=== PATIENT | male | born 1940 | race Caucasian/White ===

== ENCOUNTER → 2016-05-10 | Outpatient (REF) | payer MEDICARE, OTHER ==
[~2016-05-10] MED LIST: ACET325T38 PO; ATN25T; ATN50T PO; DOXA8TAB2 PO; FURO-125 PO; FURO40TA4 PO; HCT25T PO; KCL20TCR PO; MESA800T PO; NF-MINO10T PO; NF-VAL40T; SMV20T PO; VALS160T23 PO
[2016-05-10 11:43] LABS: ALBUMIN 4.2 g/dL (3.4-5.0); ANION GAP 17.6 MEQ/L (3-15); CALCULATED IONIZED CALCIUM 4.1 mg/dL (3.8-4.6); TOTAL PROTEIN 7.3 g/dL (6.4-8.5)
== END ==
LOC: LAB 10:21
PROVIDERS: ATTEND Family Medicine
DX: I10 Essential (primary) hypertension (principal); K50.90 Crohn's disease, unspecified, without complications
CPT/HCPCS: 80053

== ENCOUNTER → 2016-06-17 | Outpatient (CLI) | payer MEDICARE, OTHER | LOC: LAB 09:16 | PROVIDERS: ATTEND Internal Medicine Gastroenterology | DX: K50.10 Crohn's disease of large intestine without complications (principal) | CPT/HCPCS: 83993 ==

== ENCOUNTER 2016-07-21 12:30 | Emergency (ER) | payer MEDICARE, OTHER ==
[~2016-07-21] VITALS: Ht 188 cm; Wt 118.4 kg
[2016-07-21 13:53] LABS: BASOPHILS % (AUTO) 0 % (0-2); EOSINOPHILS % (AUTO) 0 % (0-4); LYMPHOCYTES # (AUTO) 0.9 X10^3; MEAN CORPUSCULAR HEMOGLOBIN 29.4 PG (26.0-34.0); MEAN CORPUSCULAR HGB CONC 33.9 g/dL (31.0-37.0); MEAN CORPUSCULAR VOLUME 87 FL (80-100); MEAN PLATELET VOLUME 9.6 FL (6.0-9.5); MONOCYTES # (AUTO) 0.7 X10^3; MONOCYTES % (AUTO) 7 % (3-11); NEUTROPHILS # (AUTO) 8.5 X10^3; NEUTROPHILS % (AUTO) 83 % (51-67); PLATELET COUNT 141 10^3uL (150-450); WHITE BLOOD COUNT 10.15 10^3uL (4.0-11.0)
[2016-07-21 15:15] LABS: ALBUMIN 3.9 g/dL (3.4-5.0); ANION GAP 15.9 MEQ/L (3-15); CALCULATED IONIZED CALCIUM 4.1 mg/dL (3.8-4.6)
--- NOTE | 2016-07-21 15:49 | NUR ---
Lab reports Troponin level is 0.09 which is "critical" result - reported to .
[2016-07-21] MEDS ORDERED: ASPIRIN 81 MG CHEW (CHILDREN'S ASA) PO ONE (16:00)
[2016-07-21] MEDS ORDERED: NITROGLYCERIN 2% OINTMENT (NITRO-BID) 1 GM UNIT DOSE PACKET TOP ONE (16:00)
[2016-07-21] MEDS ORDERED: FUROSEMIDE 20 MG/2 ML (LASIX) VIAL IV ONE (16:00)
[2016-07-21] MEDS ORDERED: SODIUM CHLORIDE FLUSH 10 ML SYR IV PRN (16:15)
[2016-07-21] MEDS: SODIUM CHLORIDE FLUSH 3 ML SYR IV PRN ×3 (16:19→16:33)
--- NOTE | 2016-07-21 16:37 | NUR ---
Has not had any chest discomfort or other discomfort since admission. Little or no SOA while at rest on ER cart. Denies nausea. Skin remains cool and dry.
[2016-07-21] MEDS ORDERED: ENOXAPARIN 100 MG/1 ML (LOVENOX) SYR SC ONE (17:00)
--- NOTE | 2016-07-21 17:07 | NUR ---
HAS BEEN UP TO TOILET TO URINATE. DENIES FEELING LIGHT-HEADED OR DIZZY. TOLERATED WELL.
--- NOTE | 2016-07-21 17:28 | NUR ---
[facility] has accepted patient for transfer at 1717 hrs. Contacted CCU to give pt report to nurse who was unable to take report at this time and asked that I call back in 15 minutes.
--- NOTE | 2016-07-21 17:36 | NUR ---
Pt continues to deny any discomfort. Sits on ER cart with HOB elevated to approx 80 degrees. Denies SOA at present. Denies nausea. Skin is cool and dry. Remains alert and oriented.
--- NOTE | 2016-07-21 17:59 | NUR ---
EMS has loaded patient. Have contacted [facility] CCU receiving nurse who accepts pt report.
[2016-07-21 22:12] VITALS: BP 139/91
== END 2016-07-21 18:05 | disposition short-term general hospital (02) ==
LOC: ED 12:31
DX: I20.8 Other forms of angina pectoris (principal); I11.0 Hypertensive heart disease with heart failure; I50.9 Heart failure, unspecified
CPT/HCPCS: 36415; 71020; 80053; 82550; 82553; 83880; 84484; 85025; 86140; 87486; 87581; 87633; 87798; 93005; 99285; A9270; J1650; J1940; 93010; 96372; 96374

== ENCOUNTER → 2016-07-21 | Outpatient (CLI) | payer MEDICARE, OTHER | LOC: EMS 17:50 | PROVIDERS: ATTEND Internal Medicine | DX: I20.8 Other forms of angina pectoris (principal) ==

== ENCOUNTER 2016-07-30 19:48 | Emergency (ER) | payer MEDICARE, OTHER ==
[~2016-07-30] VITALS: Ht 188 cm; Wt 117.3 kg
--- OUTSIDE RECORDS SUMMARY | 2016-07-30 19:52 | XMS REPORT | Continuity of Care Document ---
Author Author [facility] Address Unknown Phone Unavailable Allergies Active Description Code Type Severity Reaction Onset Reported/Identified Relationship to Patient Clinical Status Yes No Known Allergies [id number] Drug Allergy Unknown N/A 07/21/2016 Yes No Known Allergies No Known Allergies Drug Allergy Unknown N/A 07/21/2016 Medications Problems Date Dx Coded Attending Type Code Diagnosis Diagnosed By 05/13/2012 Ot 366.9 05/13/2012 Ot 368.8 07/06/2012 Ot 372.00 ACUTE CONJUNCTIVITIS NOS 07/06/2012 Ot 379.8 EYE DISORDERS NEC 11/06/2014 KRISHNA BOSTON, KEY M Ot 272.0 11/06/2014 KRISHNA BOSTON, KEY M Ot 401.9 11/06/2014 KRISHNA BOSTON, KEY M Ot 272.0 11/06/2014 KRISHNA BOSTON, KEY M Ot 401.9 11/26/2014 KRISHNA BOSTON, KEY M Ot 272.0 11/26/2014 KRISHNA BOSTON, KEY M Ot 401.9 12/11/2014 KRISHNA BOSTON, KEY M Ot 272.0 12/11/2014 KRISHNA BOSTON, KEY M Ot 401.9 12/11/2014 KRISHNA BOSTON, KEY M Ot 555.9 12/14/2014 KRISHNA BOSTON, KEY M Ot 575.0 12/18/2014 KRISHNA BOSTON, KEY M Ot 575.0 12/29/2014 KRISHNA BOSTON, KEY M Ot 272.0 12/29/2014 KRISHNA BOSTON, KEY M Ot 401.9 12/29/2014 KRISHNA BOSTON, KEY M Ot 555.9 01/07/2015 KRISHNA BOSTON, KEY M Ot 575.0 01/18/2015 KRISHNA BOSTON, KEY M Ot 272.0 01/18/2015 KRISHNA BOSTON, KEY M Ot 401.9 01/18/2015 KRISHNA BOSTON, KEY M Ot 555.9 01/22/2015 EZEKIEL BOSTON, EVA Pena Ot 401.9 01/22/2015 EZEKIEL BOSTON, EVA Pena Ot 555.9 01/22/2015 KRISHNA BOSTON, KEY Dye Ot 272.0 01/22/2015 KRISHNA BOSTON, KEY Dye Ot 401.9 01/22/2015 KRISHNA BOSTON, KEY Dye Ot 272.0 01/22/2015 KRISHNA BOSTON, KEY Hardik Ot 401.9 01/22/2015 KRISHNA BOSTON, KEY Dye Ot 555.9 01/22/2015 KRISHNA BOSTON, KEY Hardik Ot 789.09 01/22/2015 KRISHNA BOSTON, KEY Dye Ot 575.0 01/28/2015 TONA ERWIN MD Ot E66.01 MORBID (SEVERE) OBESITY DUE TO EXCESS CA 01/28/2015 TONA ERWIN MD Ot E78.5 HYPERLIPIDEMIA, UNSPECIFIED 01/28/2015 TONA ERWIN MD Ot E87.6 HYPOKALEMIA 01/28/2015 TONA ERWIN MD Ot I10 ESSENTIAL (PRIMARY) HYPERTENSION 01/28/2015 TONA ERWIN MD Ot I95.89 OTHER HYPOTENSION 01/28/2015 TONA ERWIN MD Ot K50.90 CROHN'S DISEASE, UNSPECIFIED, WITHOUT CO 01/28/2015 TONA ERWIN MD Ot K80.20 CALCULUS OF GALLBLADDER W/O CHOLECYSTITI 01/28/2015 TONA ERWIN MD Ot T41.1X5A ADVERSE EFFECT OF INTRAVENOUS ANESTHETIC 01/28/2015 TONA ERWIN MD Ot T88.59XA OTHER COMPLICATIONS OF ANESTHESIA, INITI 01/28/2015 TONA ERWIN MD Ot Y84.8 OT MEDICAL PROCEDURES CAUSE ABN REACT /C 01/28/2015 TONA ERWIN MD Ot Y92.[address] 01/28/2015 TONA ERWIN MD Ot Z53.9 PROCEDURE AND TREATMENT NOT CARRIED OUT, 01/28/2015 TONA ERWIN MD Ot Z68.34 BODY MASS INDEX (BMI) 34.0-34.9, ADULT 01/29/2015 KRISHNA BOSTON, KEY Dye Ot 575.0 01/30/2015 WESLEY GALLARDO MD Ot E78.5 HYPERLIPIDEMIA, UNSPECIFIED 01/30/2015 WESLEY GALLARDO MD Ot I10 ESSENTIAL (PRIMARY) HYPERTENSION 01/30/2015 WESLEY GALLARDO MD Ot K50.90 CROHN'S DISEASE, UNSPECIFIED, WITHOUT CO 01/30/2015 PAULINA BOSTON, WESLEY P Ot K92.1 MELENA 02/02/2015 PAULINA BOSTON, WESLEY P Ot R19.7 02/10/2015 PAULINA BOSTON, WESLEY P Ot K92.1 02/10/2015 PAULINA BOSTON, WESLEY P Ot R10.9 02/10/2015 PAULINA BOSTON, WESLEY P Ot R19.7 02/19/2015 DEE DEE BOSTON, JEF Langley Ot 574.20 02/19/2015 JEF FUNEZ MD Ot 593.2 02/26/2015 KRISHNA BOSTON, KEY Dye Ot 272.0 02/26/2015 KRISHNA BOSTON, KEY Dye Ot 401.9 02/26/2015 KRISHNA BOSTON, KEY Dye Ot 555.9 03/09/2015 Ot I10 03/15/2015 KRISHNA BOSTON, KEY Dye Ot 272.0 03/15/2015 KRISHNA BOSTON, EKY Dye Ot 401.9 03/15/2015 KRISHNA BOSTON, KEY Dye Ot 555.9 05/31/2015 JEF FUNEZ MD Ot E66.01 MORBID (SEVERE) OBESITY DUE TO EXCESS CA 05/31/2015 JEF FUNEZ MD Ot E78.0 PURE HYPERCHOLESTEROLEMIA 05/31/2015 JEF FUNEZ MD Ot I10 ESSENTIAL (PRIMARY) HYPERTENSION 05/31/2015 JEF FUNEZ MD Ot K50.90 CROHN'S DISEASE, UNSPECIFIED, WITHOUT CO 05/31/2015 JEF FUNEZ MD Ot 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 05/31/2015 JEF FUNEZ MD Ot Z68.36 BODY MASS INDEX (BMI) 36.0-36.9, ADULT 08/06/2015 KRISHNA BOSTON, KEY Dye Ot 272.0 08/06/2015 KRISHNA BOSTON, KEY Dye Ot 401.9 08/06/2015 KRISHNA BOSTON, KEY Dye Ot 555.9 08/31/2015 ORA KLEIN Ot K50.90 CROHN'S DISEASE, UNSPECIFIED, WITHOUT CO 09/16/2015 ORA KLEIN Ot K50.90 CROHN'S DISEASE, UNSPECIFIED, WITHOUT CO 05/12/2016 KEY KELLER MD Ot 272.0 PURE HYPERCHOLESTEROLEM 05/12/2016 KEY KELLER MD Ot 401.9 HYPERTENSION NOS 05/12/2016 KRISHNA BOSTON, KEY Dye Ot 272.0 PURE HYPERCHOLESTEROLEM 05/12/2016 KEY KELLER MD Ot 401.9 HYPERTENSION NOS 05/12/2016 KRISHNA BOSTON, KEY Dye Ot 555.9 REGIONAL ENTERITIS NOS 05/12/2016 KRISHNA BOSTON, KEY Dye Ot 789.09 ABDOMINAL PAIN, OTHER SPECIFIED SITE 05/12/2016 KEY KELLER MD Ot 575.0 ACUTE CHOLECYSTITIS 05/12/2016 DEE DEE BOSTON, JEF Langley Ot 574.20 CHOLELITHIASIS NOS 05/12/2016 DEE DEE BOSTON, JEF Langley Ot 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, ACQUIRED 05/12/2016 PAULINA BOSTON, WESLEY Cunningham Ot K92.1 MELENA 05/12/2016 WESLEY GALLARDO MD Ot R10.9 UNSPECIFIED ABDOMINAL PAIN 05/12/2016 WESLEY GALLARDO MD Ot R19.7 DIARRHEA, UNSPECIFIED 05/12/2016 Ot I10 ESSENTIAL (PRIMARY) HYPERTENSION 05/12/2016 ORA KLEIN Ot K50.90 CROHN'S DISEASE, UNSPECIFIED, WITHOUT CO 05/13/2016 KEY KELLER MD Ot I10 ESSENTIAL (PRIMARY) HYPERTENSION 05/13/2016 KEY KELLER MD Ot K50.90 CROHN'S DISEASE, UNSPECIFIED, WITHOUT CO 05/18/2016 EKY KELLER MD Ot I10 ESSENTIAL (PRIMARY) HYPERTENSION 05/18/2016 KEY KELLER MD Ot K50.90 CROHN'S DISEASE, UNSPECIFIED, WITHOUT CO 06/27/2016 RM MARTE MD Ot 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 07/18/2016 RM MARTE MD Ot 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 07/25/2016 KIRBY GREY MD Ot I11.0 HYPERTENSIVE HEART DISEASE WITH HEART FA 07/25/2016 KIRBY GREY MD 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 07/25/2016 KIRBY GREY MD Ot I50.9 HEART FAILURE, UNSPECIFIED 07/25/2016 KIRBY GREY MD Ot R06.02 SHORTNESS OF BREATH 07/25/2016 Keenan Diaz 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 Procedures Code Description Performed By Performed On [id number] RESECTION OF GALLBLADDER, PERCUTANEOUS E 01/27/2015 Results Test Result Range Comprehensive metabolic panel - 05/10/16 10:20 Sodium measurement 96 70-110 Carbon dioxide measurement 25 22-29 Serum or plasma anion gap 17.6 3-15 BLOOD UREA NITROGEN 17 7-18 CREATININE SERUM 1.27 0.8-1.5 Brucella species antibody panel (IgG, IgM) 13 10-20 Estimated glomerular filtration rate (GFR) 66.7 Estimated glomerular filtration rate (GFR) non- 55.1 OSMOLALITY,CALCULATED 280 280-300 CALCIUM 9.5 8.8-10.8 Calculated ionized calcium measurement 4.1 3.8-4.6 BILIRUBIN,TOTAL 0.9 0.1-1.0 Serum or plasma alkaline phosphatase measurement 71 38-126 ASPARTATE AMINO TRANSFERASE 22 15-37 ALANINE AMINOTRANSFERASE 31 30-65 Serum or plasma total protein measurement 7.3 6.4-8.5 Serum or plasma albumin measurement 4.2 3.4-5.0 Serum or plasma albumin/globulin mass ratio 1.354 1.1-1.8 Calprotectin - 06/17/16 02:30 Calprotectin 41.5 RESPIRATORY PANEL by PCR - 07/21/16 13:34 Adenovirus DNA Negative Negative Human coronavirus 229E RNA Negative Negative Coronovirus HKU1 Negative Negative Human coronavirus NL63 RNA Negative Negative Human coronavirus OC43 RNA Negative Negative Human metapneumovirus RNA Negative Negative Rhinovirus+Enterovirus RNA Negative Negative Influenza virus A subtype Negative Negative Influenza virus B RNA Negative Negative Parainfluenza virus 1 RNA Negative Negative Parainfluenza virus 2 RNA Negative Negative Parainfluenza virus 3 RNA Negative Negative Parainfluenza virus 4 RNA Negative Negative Respiratory syncytial virus RNA Negative Negative Bordetella pertussis DNA Negative Negative Chlamydophila pneumoniae DNA Negative Negative Mycoplasma pneumoniae DNA Negative Negative Complete blood count (CBC) with automated white blood cell (WBC) differential - 07/21/16 13:37 Blood automated leukocyte count 10.15 4.0-11.0 Erythrocytes 5.13 4.50-5.50 12.0-16.0;g/dL 15.1 13.5-17.0 Hematocrit 44.50 39.00-50.00 Automated erythrocyte mean corpuscular volume 87 80-100 Mean corpuscular hemoglobin (MCH) determination 29.4 26.0-34.0 Automated erythrocyte mean corpuscular hemoglobin concentration measurement ( mass/volume) 33.9 31.0-37.0 Erythrocyte distribution width 12.8 11.8 -15.6 Automated blood platelet count 141 150- 450 Automated blood platelet mean volume measurement 9.6 6.0-9.5 Automated neutrophil percentage 83 51- 67 Lymphocytes/100 leukocytes 9 20-46 Automated monocyte percentage 7 3-11 Eosinophil count auto 0 0-4 Automated basophil percentage 0 0-2 Automated blood neutrophil count 8.5 Blood lymphocytes count (number/volume) 0.9 Automated blood monocyte count 0.7 Blood absolute eosinophil count 0.0 Basophils 0.0 C REACTIVE PROTEIN* - 07/21/16 13:37 C REACTIVE PROTEIN* 1.40 0.0-0.9 Comprehensive metabolic panel - 07/21/16 13:37 Sodium measurement 100 70-110 CARBON DIOXIDE 24 22-29 Serum or plasma anion gap 15.9 3-15 BLOOD UREA NITROGEN 16 7-18 CREATININE SERUM 1.30 0.8-1.5 Brucella species antibody panel (IgG, IgM) 12 10-20 Estimated glomerular filtration rate (GFR) 64.9 Estimated glomerular filtration rate (GFR) non- 53.7 OSMOLALITY,CALCULATED 276 280-300 CALCIUM 9.2 8.8-10.8 Calculated ionized calcium measurement 4.1 3.8-4.6 BILIRUBIN,TOTAL 1.0 0.1-1.0 Serum or plasma alkaline phosphatase measurement 79 38-126 ASPARTATE AMINO TRANSFERASE 20 15-37 ALANINE AMINOTRANSFERASE 31 30-65 Serum or plasma total protein measurement 7.0 6.4-8.5 Serum or plasma albumin measurement 3.9 3.4-5.0 Serum or plasma albumin/globulin mass ratio 1.258 1.1-1.8 Serum or plasma creatine kinase measurement - 07/21/16 13:37 Serum or plasma creatine kinase measurement 94 55-170 Serum or plasma creatine kinase MB measurement - 07/21/16 13:37 Serum or plasma creatine kinase MB measurement 2.2 0.0-6.0 TROPONIN I* - 07/21/16 13:37 TROPONIN I 0.091 0.010-0.080 NT-Pro BNP - 07/21/16 13:37 NT-Pro BNP 1600 0-450 TROPONIN I - 07/21/16 20:54 TROPONIN I 0.08 ng/mL < 0.07 B-TYPE NATRIURETIC PEPTIDE - 07/22/16 05:57 B-TYPE NATRIURETIC PEPTIDE 110 pg/mL < 100 CBC W/DIFF - 07/22/16 05:57 GRANULOCYTE # 5.2 k/cumm 2.0-9.0 GRANULOCYTE % 68 % 50-75 LYMPHOCYTE # 1.6 k/cumm 1.0-4.0 LYMPHOCYTE % 21 % 20-30 MEAN CELL HGB 30.5 pg 27.0-33.0 MEAN CELL HGB CONCENTRATION 34.3 g/dL 32.0-37.0 MEAN CELL VOLUME 88.9 fl 80.0-100.0 MONOCYTE # 0.9 k/cumm 0.1-1.0 MONOCYTE % 11 % 4-6 RED BLOOD CELL 4.79 m/cumm 4.00-6.00 RED CELL DISTRIBUTION WIDTH 13.0 % 11.0- 15.6 WHITE BLOOD CELL 7.7 k/cumm 5.0-10.0 HEMOGLOBIN 14.6 gm/dL 14.0-18.0 HEMATOCRIT 42.6 % 40.0-54.0 PLATELET COUNT 149 k/cumm 150-400 HEMOGLOBIN A1C - 07/22/16 05:57 HEMOGLOBIN A1C 5.5 % < 5.7 METABOLIC PANEL, COMPREHN - 07/22/16 05:57 POTASSIUM 3.7 mmol/L 3.5-5.3 EST GFR (MDRD) 49 mL/min > 59 ANION GAP 9 mmol/L 5-15 EST CrCl (CG) > 60 mL/min > 59 GLUCOSE 98 mg/dL 70-99 CALCIUM 8.7 mg/dL 8.5-10.1 BLOOD UREA NITROGEN 16 mg/dL 7-20 CREATININE 1.4 mg/dL 0.7-1.3 SODIUM 141 mmol/L 135-148 CHLORIDE 108 mmol/L 98-110 AST/SGOT 21 Units/L 10-37 ALT/SGPT 14 Units/L < 66 CARBON DIOXIDE 24 mmol/L 21-32 TOTAL PROTEIN 6.7 gm/dL 6.4-8.2 ALBUMIN 3.3 gm/dL 3.4-5.0 BILI TOTAL 1.0 mg/dL 0.0-1.0 ALKALINE PHOSPHATASE TOTAL 62 IU/L 45- 117 LIPID PANEL - 07/22/16 05:57 CHOLESTEROL/HDL RATIO 2.3 < 5.0 LDL CHOLESTEROL 20 mg/dL < 100 VLDL CHOLESTEROL 24 mg/dL < 30 TRIGLYCERIDES 121 mg/dL < 150 CHOLESTEROL 78 mg/dL < 200 HDL CHOLESTEROL 34 mg/dL > 39 MAGNESIUM - 07/22/16 05:57 MAGNESIUM 2.0 mg/dL 1.8-2.4 THYROID STIM HORMONE (TSH) - 07/22/16 05:57 THYROID STIM HORMONE (TSH) 1.53 uIU/mL 0.34-4.82 TROPONIN I - 07/22/16 05:57 TROPONIN I 0.04 ng/mL < 0.07 MAGNESIUM - 07/23/16 21:09 MAGNESIUM 1.7 mg/dL 1.8-2.4 METABOLIC PANEL, BASIC - 07/24/16 06:49 POTASSIUM 3.7 mmol/L 3.5-5.3 EST GFR (MDRD) 54 mL/min > 59 ANION GAP 10 mmol/L 5-15 EST CrCl (CG) > 60 mL/min > 59 GLUCOSE 100 mg/dL 70-99 CALCIUM 8.4 mg/dL 8.5-10.1 BLOOD UREA NITROGEN 16 mg/dL 7-20 CREATININE 1.3 mg/dL 0.7-1.3 SODIUM 141 mmol/L 135-148 CHLORIDE 106 mmol/L 98-110 CARBON DIOXIDE 25 mmol/L 21-32 Encounters ACCT No. Visit Date/Time Discharge Status Pt. Type Provider Facility Loc./Unit Complaint [id number] 07/21/2016 12:31:00 2016 18:05:00 DIS Outpatient QUE BSOTON, KIRBY Machado [facility] ED [id number] 05/31/2015 06:45:00 2015 15:03:00 [facility] [id number] 01/30/2015 09:50:00 2014 23:59:59 CLS Outpatient PAULINA BOSTON, [facility] LAB LAB [id number] 01/29/2015 22:46:00 2014 04:14:00 DIS Emergency PAULINA BOSTON, [facility] ED [id number] 01/27/2015 10:26:00 2014 12:20:00 DIS Inpatient RIP BOSTON, TONA [facility] MED/SURG [place], POSS. OPEN [id number] 01/22/2015 07:19:00 2014 23:59:59 CLS Outpatient DEE DEE BOSTON, JEF [facility] RAD CHOLYLETHIASIS SYMPTOMS 574.20 [id number] 12/14/2014 15:55:00 2014 23:59:59 CLS Outpatient KRISHNA BOSTON, [facility] LAB LAB DROP OFF [id number] 12/11/2014 09:30:00 2014 23:59:59 CLS Preadmit KRISHNA BOSTON, [facility] RAD 789.00 ABD PAIN [id number] 12/09/2014 13:00:00 2014 23:59:59 CLS Outpatient KRISHNA BOSTON, [facility] RAD [id number] 12/09/2014 11:12:00 2014 23:59:59 CLS Outpatient KRISHNA BOSTON, [facility] LAB LAB DROP OFF [id number] 11/04/2014 09:21:00 2014 23:59:59 CLS Outpatient KRISHNA BOSTON, [facility] LAB LAB DROP OFF [id number] 01/22/2014 08:49:00 2013 23:59:59 CLS Outpatient EZEKIEL BOSTON, EVA [facility] LAB [id number] 07/21/2016 17:50:00 ACT Outpatient Keenan Diaz [facility] EMS TRANSPORT FROM ER TO [place] [id number] 06/17/2016 09:16:00 ACT Outpatient ESTURADO BOSTON, RM Cunningham [facility] LAB [id number] 05/10/2016 10:21:00 ACT Outpatient KRISHNA BOSTON, [facility] LAB DROP OFF [address] KELLER [id number] 08/18/2015 14:12:00 ACT Outpatient ORA KLEIN [facility] LAB LAB WORK [id number] 02/15/2015 16:05:00 Document Registration [id number] 07/06/2012 19:55:00 Document Registration [id number] 05/13/2012 09:48:00 Document Registration
--- OUTSIDE RECORDS SUMMARY | 2016-07-30 19:53 | XMS REPORT | Continuity of Care Document ---
Author Author [facility] Address Unknown Phone Unavailable Allergies Active Description Code Type Severity Reaction Onset Reported/Identified Relationship to Patient Clinical Status Yes No Known Allergies [id number] Drug Allergy Unknown N/A 07/21/2016 Yes No [...] DISEASE, UNSPECIFIED, WITHOUT CO 01/30/2015 PAULINA BOSTON, WSELEY P Ot K92.1 MELENA 02/02/2015 PAULINA BOSTON, [...] KEY Dye Ot 272.0 03/15/2015 KRISHNA BOSTON, KEY Dye Ot 401.9 03/15/2015 KRISHNA BOSTON, EKY Dye Ot 555.9 05/31/2015 JEF FUNEZ MD [...] K50.90 CROHN'S DISEASE, UNSPECIFIED, WITHOUT CO 05/18/2016 KEY KELLER MD Ot I10 ESSENTIAL (PRIMARY) [...] Procedures Code Description Performed By Performed On [id number] RESECTION OF GALLBLADDER, PERCUTANEOUS E 01/27/2015 Results [...] Status Pt. Type Provider Facility Loc./Unit Complaint [id number] 07/21/2016 12:31:00 2016 18:05:00 DIS Outpatient QUE BOSTON, KIRBY Machado [facility] ED [id number] 05/31/2015 06:45:00 2015 15:03:00 [facility] [id number] 01/30/2015 09:50:00 2014 23:59:59 CLS Outpatient PAULINA BOSTON, [facility] LAB LAB [id number] 01/29/2015 22:46:00 2014 04:14:00 DIS Emergency PAULINA BOSTON, [facility] ED [id number] 01/27/2015 10:26:00 2014 12:20:00 DIS Inpatient RIP BOSTON, TONA [facility] MED/SURG LAP [place], POSS. OPEN [id number] 01/22/2015 07:19:00 2014 23:59:59 CLS Outpatient DEE DEE BOSTON, JEF [facility] RAD CHOLYLETHIASIS SYMPTOMS 574.20 [id number] 12/14/2014 15:55:00 2014 23:59:59 CLS Outpatient KRISHNA BOSTON, [facility] LAB LAB DROP OFF [id number] 12/11/2014 09:30:00 2014 23:59:59 CLS Preadmit KRISHNA BOSTON, [facility] RAD 789.00 ABD PAIN [id number] 12/09/2014 13:00:00 2014 23:59:59 CLS Outpatient KRISHNA BOSTON, [facility] RAD [id number] 12/09/2014 11:12:00 2014 23:59:59 CLS Outpatient KRISHNA BOSTON, [facility] LAB LAB DROP OFF [id number] 11/04/2014 09:21:00 2014 23:59:59 CLS Outpatient KRISHNA BOSTON, [facility] LAB LAB DROP OFF [id number] 01/22/2014 08:49:00 2013 23:59:59 CLS Outpatient EZEKIEL BOSTON, EVA [facility] LAB [id number] 07/21/2016 17:50:00 ACT Outpatient Keenan Diaz [facility] EMS TRANSPORT FROM ER TO [place] [id number] 06/17/2016 09:16:00 ACT Outpatient ESTUARDO BOSTON, RM Cunningham [facility] LAB [id number] 05/10/2016 10:21:00 ACT Outpatient KRISHNA BOSTON, [facility] LAB DROP OFF DR KELLER [id number] 08/18/2015 14:12:00 ACT Outpatient ORA KLEIN [facility] LAB LAB WORK [id number] 02/15/2015 16:05:00 Document Registration [id number] 07/06/2012 19:55:00 Document Registration [id number] 05/13/2012 09:48:00 Document Registration
--- NOTE | 2016-07-30 20:02 | NUR ---
Pt had a heart cath a week ago on Sunday, has not removed the dressing but states that he feels like there is some swelling and he is concerned about this. RN removed dressing from the right groin, noted pt has a blood blister but the site where he had the heart cath is clean and dry, no bruising noted.
[2016-07-30 20:28] VITALS: BP 160/94
== END 2016-07-30 20:37 | disposition home or self-care (01) ==
LOC: ED 19:49
DX: S70.321A Blister (nonthermal), right thigh, initial encounter (principal); Z98.61 Coronary angioplasty status; X58.XXXA Exposure to other specified factors, initial encounter
CPT/HCPCS: 99281; 99283

== ENCOUNTER 2016-09-19 16:47 | Inpatient (IN) | payer MEDICARE, OTHER ==
[~2016-09-19] VITALS: Ht 188 cm; Wt 114.4 kg
--- OUTSIDE RECORDS SUMMARY | 2016-09-19 16:52 | XMS REPORT | Continuity of Care Document ---
Author Author [facility] Address Unknown Phone Unavailable Allergies Active Description Code Type Severity Reaction Onset Reported/Identified Relationship to Patient Clinical Status Yes No Known Allergies No Known Allergies Drug Allergy Unknown N/A 07/21/2016 Yes No Known Allergies [id number] Drug Allergy Unknown N/A 07/30/2016 Medications Problems Date Dx Coded Attending Type [...] BOSTON, KEY M Ot 575.0 12/18/2014 KRISHNA BOTSON, KEY M Ot 575.0 12/29/2014 KRISHNA BOSTON, [...] Dye Ot 272.0 02/26/2015 KRISHNA BOSTON, KEY Dey Ot 401.9 02/26/2015 KRISHNA BOSTON, KEY Dye Ot 555.9 03/09/2015 Ot I10 03/15/2015 KRISHNA BOSTON, KEY Dye Ot 272.0 03/15/2015 KRISHNA BOSTON, KEY Dye Ot 401.9 03/15/2015 KRISHNA BOSTON, KEY [...] UNSPECIFIED ABDOMINAL PAIN 05/12/2016 WESLEY GALLARDO MD P Ot R19.7 DIARRHEA, UNSPECIFIED 05/12/2016 Ot I10 [...] 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 07/21/2016 KIRBY GREY MD Ot I11.0 HYPERTENSIVE HEART DISEASE WITH HEART FA 07/21/2016 KIRBY GREY MD 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 07/21/2016 KIRBY GREY MD Ot I50.9 HEART FAILURE, UNSPECIFIED 07/21/2016 KIRBY GREY MD Ot R06.02 SHORTNESS OF BREATH 07/21/2016 Keenan Diaz MD E78.5 HYPERLIPIDEMIA, UNSPECIFIED 07/21/2016 Keenan Diaz MD I11.0 HYPERTENSIVE HEART DISEASE WITH HEART FAILURE 07/21/2016 Keenan Diaz MD F 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 07/21/2016 Keenan Diaz MD I25.10 ATHSCL HEART DISEASE OF [place] CORONARY ARTERY W/O 07/21/2016 Keenan Diaz MD F I50.30 UNSPECIFIED DIASTOLIC (CONGESTIVE) HEART FAILURE 07/21/2016 Keenan Diaz MD A R06.02 SHORTNESS OF BREATH 07/25/2016 KIRBY GREY MD, Ot I11.0 HYPERTENSIVE HEART DISEASE WITH HEART FA 07/25/2016 KIRBY GREY MD, 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 07/25/2016 KIRBY GREY MD Ot I50.9 HEART FAILURE, UNSPECIFIED 07/25/2016 KIRBY GREY MD Ot R06.02 SHORTNESS OF BREATH 07/25/2016 Keenan Diaz 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 07/30/2016 CARL HERNANDEZ MD Ot S70.321A BLISTER (NONTHERMAL), RIGHT THIGH, INITI 07/30/2016 CARL HERNANDEZ MD Ot X58.XXXA EXPOSURE TO OTHER SPECIFIED FACTORS, INI 07/30/2016 CARL HERNANDEZ MD Ot Z98.61 CORONARY ANGIOPLASTY STATUS 08/05/2016 CARL HERNANDEZ MD Ot S70.321A BLISTER (NONTHERMAL), RIGHT THIGH, INITI 08/05/2016 CARL HERNANDEZ MD Ot X58.XXXA EXPOSURE TO OTHER SPECIFIED FACTORS, INI 08/05/2016 CARL HERNANDEZ MD Ot Z98.61 CORONARY ANGIOPLASTY STATUS 08/05/2016 CARL HERNANDEZ MD, Ot S70.321A BLISTER (NONTHERMAL), RIGHT THIGH, INITI 08/05/2016 CARL HERNANDEZ MD Ot X58.XXXA EXPOSURE TO OTHER SPECIFIED FACTORS, INI 08/05/2016 CARL HERNANDEZ MD Ot Z98.61 CORONARY ANGIOPLASTY STATUS 08/15/2016 Keenan Diaz 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 Procedures Code Description Performed By Performed On [id number] RESECTION OF GALLBLADDER, PERCUTANEOUS E 01/27/2015 [id number] MEASURE OF CARDIAC SAMPL PRESSURE, L HEART, PERC Emily BOSTON, Keenan Pratt 07/21/2016 [id number] FLUOROSCOPY OF MULT COR ART USING L OSM CONTRAST Emily BOSTON, Keenan Pratt 07/21/2016 Results Test Result Range Comprehensive metabolic panel [...] Status Pt. Type Provider Facility Loc./Unit Complaint [id number] 07/30/2016 19:49:00 2016 20:37:00 DIS Emergency MARY BOSTON, CARL Mireles [facility] ED [id number] 07/21/2016 12:31:00 2016 18:05:00 DIS Emergency QUE BOSTON, KIRBY Machado [facility] ED [id number] 05/31/2015 06:45:00 2015 15:03:00 DIS Outpatient DEE DEE BOSTON, JEF [facility] ASC LAP HOWARD [id number] 01/30/2015 09:50:00 2014 23:59:59 CLS Outpatient PAULINA BOSTON, [facility] LAB LAB [id number] 01/29/2015 22:46:00 2014 04:14:00 DIS Emergency PAULINA BOSTON, [facility] ED [id number] 01/27/2015 10:26:00 2014 12:20:00 DIS Inpatient RIP BOSTON, [facility] MED/SURG LAP HOWARD, POSS. OPEN [id number] 01/22/2015 07:19:00 2014 23:59:59 CLS Outpatient DEE DEE BOSTON, [facility] RAD CHOLYLETHIASIS SYMPTOMS 574.20 [id number] 12/14/2014 15:55:00 2014 23:59:59 CLS Outpatient KRISHNA BOSTON, [facility] LAB LAB DROP OFF [id number] 12/11/2014 09:30:00 2014 23:59:59 CLS Preadmit KRISHNA BOSTON, [facility] RAD 789.00 ABD PAIN [id number] 12/09/2014 13:00:00 2014 23:59:59 CLS Outpatient KRISHNA BOSTON, [facility] RAD [id number] 12/09/2014 11:12:00 2014 23:59:59 CLS Outpatient KRISHNA BOSTON, [facility] LAB LAB DROP OFF [id number] 11/04/2014 09:21:00 2014 23:59:59 CLS Outpatient KRISHNA BOSTON, [facility] LAB LAB DROP OFF [id number] 01/22/2014 08:49:00 2013 23:59:59 CLS Outpatient EZEKIEL BOSTON, [facility] LAB [id number] 07/21/2016 17:50:00 ACT Outpatient Keenan Diaz [facility] EMS TRANSPORT FROM ER TO [place] [id number] 06/17/2016 09:16:00 ACT Outpatient ESTUARDO BOSTNO, RM [facility] LAB [id number] 05/10/2016 10:21:00 ACT Outpatient KRISHNA BOSTON, KEY [facility] LAB DROP OFF DR KELLER [id number] 08/18/2015 14:12:00 ACT Outpatient JOSÉ MIGUEL PAREKH, ORA Marte [facility] LAB LAB WORK [id number] 02/15/2015 16:05:00 Document Registration [id number] 07/06/2012 19:55:00 Document Registration [id number] 05/13/2012 09:48:00 Document Registration
--- OUTSIDE RECORDS SUMMARY | 2016-09-19 16:52 | XMS REPORT | Continuity of Care Document ---
Author Author [facility] Address Unknown Phone Unavailable Allergies Active Description Code Type Severity Reaction Onset Reported/Identified Relationship to Patient Clinical Status Yes No Known Allergies No Known Allergies Drug Allergy Unknown N/A 07/21/2016 Yes No Known Allergies [id number] Drug Allergy Unknown N/A 07/30/2016 Medications Problems [...] KEY M Ot 575.0 01/18/2015 KRISHNA BOSTON, EKY M Ot 272.0 01/18/2015 KRISHNA BOSTON, KEY [...] Diaz MD I25.10 ATHSCL HEART DISEASE OF [place] CORONARY ARTERY W/O 07/21/2016 Keenan Diaz MD [...] Procedures Code Description Performed By Performed On 5FA04IX RESECTION OF GALLBLADDER, PERCUTANEOUS E 01/27/2015 [id number] MEASURE OF CARDIAC SAMPL PRESSURE, L HEART, PERC Emily BOSTON, Keenan Pratt 07/21/2016 [id number] FLUOROSCOPY OF MULT COR ART USING L [...] Status Pt. Type Provider Facility Loc./Unit Complaint [id number] 07/30/2016 19:49:00 2016 20:37:00 DIS Emergency MARY BOSTON, CARL Mireles [facility] ED [id number] 07/21/2016 12:31:00 2016 18:05:00 DIS Emergency QUE BOSTON, KIRBY Machado [facility] ED [id number] 05/31/2015 06:45:00 2015 15:03:00 DIS Outpatient DEE DEE BOSTON, JEF [facility] ASC LAP HOWARD [id number] 01/30/2015 09:50:00 2014 23:59:59 CLS Outpatient PAULINA BOSTON, [facility] LAB LAB [id number] 01/29/2015 22:46:00 2014 04:14:00 DIS Emergency PAULINA BOSTON, [facility] ED [id number] 01/27/2015 10:26:00 2014 12:20:00 DIS Inpatient RIP BOSTON, [facility] MED/SURG LAP HOWARD, POSS. OPEN [id number] 01/22/2015 07:19:00 2014 23:59:59 CLS Outpatient DEE DEE BOSTON, [facility] RAD CHOLYLETHIASIS SYMPTOMS 574.20 [id number] 12/14/2014 15:55:00 2014 23:59:59 CLS Outpatient KRISHNA BOSTON, [facility] LAB LAB DROP OFF [id number] 12/11/2014 09:30:00 2014 23:59:59 CLS Preadmit KRISHNA BOSTON, [facility] RAD 789.00 ABD PAIN [id number] 12/09/2014 13:00:00 2014 23:59:59 CLS Outpatient KRISHNA BOSTON, [facility] RAD [id number] 12/09/2014 11:12:00 2014 23:59:59 CLS Outpatient KRISHNA BOSTON, [facility] LAB LAB DROP OFF [id number] 11/04/2014 09:21:00 2014 23:59:59 CLS Outpatient KRISHNA BOSTON, [facility] LAB LAB DROP OFF [id number] 01/22/2014 08:49:00 2013 23:59:59 CLS Outpatient EZEKIEL BOSTON, [facility] LAB [id number] 07/21/2016 17:50:00 ACT Outpatient Keenan Diaz [facility] EMS TRANSPORT FROM ER TO [place] [id number] 06/17/2016 09:16:00 ACT Outpatient ESTUARDO BOSTON, RM [facility] LAB [id number] 05/10/2016 10:21:00 ACT Outpatient KRISHNA BOSTON, KEY [facility] LAB DROP OFF DR KELLER [id number] 08/18/2015 14:12:00 ACT Outpatient JOSÉ MIGUEL PAREKH, ORA Marte [facility] LAB LAB WORK [id number] 02/15/2015 16:05:00 Document Registration [id number] 07/06/2012 19:55:00 Document Registration [id number] 05/13/2012 09:48:00 Document Registration
[2016-09-19 17:06] LABS: BASOPHILS % (AUTO) 0 % (0-2); EOSINOPHILS # (AUTO) 0.1 10^3uL; EOSINOPHILS % (AUTO) 1 % (0-4); LYMPHOCYTES # (AUTO) 1.7 X10^3; MEAN CORPUSCULAR HEMOGLOBIN 29.5 PG (26.0-34.0); MEAN CORPUSCULAR HGB CONC 33.5 g/dL (31.0-37.0); MEAN CORPUSCULAR VOLUME 88 FL (80-100); MEAN PLATELET VOLUME 9.4 FL (6.0-9.5); MONOCYTES % (AUTO) 9 % (3-11); NEUTROPHILS # (AUTO) 8.3 X10^3; NEUTROPHILS % (AUTO) 75 % (51-67); PLATELET COUNT 237 10^3uL (150-450); WHITE BLOOD COUNT 11.05 10^3uL (4.0-11.0)
[2016-09-19] MEDS ORDERED: FURO40TA4 PO (17:09)
[2016-09-19] MEDS ORDERED: CARV3.12T PO (17:09)
[2016-09-19] MEDS ORDERED: CIPR2.5D OT (17:09)
[2016-09-19] MEDS ORDERED: NITR0.4T7 SL (17:09)
[2016-09-19] MEDS ORDERED: CLPD75T PO (17:09)
[2016-09-19] MEDS ORDERED: DOXA8TAB37 PO (17:09)
[2016-09-19 17:18] LABS: ALBUMIN 4.4 g/dL (3.4-5.0); ALKALINE PHOSPHATASE 87 U/L (38-126); ANION GAP 14.6 MEQ/L (3-15); BUN/CREATININE RATIO 12 (10-20); CALCULATED IONIZED CALCIUM 3.7 mg/dL (3.8-4.6); TOTAL PROTEIN 8.1 g/dL (6.4-8.5)
[2016-09-19] MEDS ORDERED: SODIUM CHLORIDE FLUSH 3 ML SYR IV PRN (18:30)
[2016-09-19] MEDS ORDERED: SODIUM CHLORIDE FLUSH 10 ML SYR IV PRN (18:30)
--- NOTE | 2016-09-19 18:37 | Diagnostic Imaging Report ---
PROCEDURE: CT angiography of the chest with contrast. TECHNIQUE: Multiple contiguous axial images were obtained through the chest after uneventful bolus administration of intravenous contrast. Reconstructed CTA MIP acquisitions were also performed. INDICATION: Dyspnea, elevated d-dimer. COMPARISON: 11/13/2008. DISCUSSION: There is extensive bilateral pulmonary emboli present which is occlusive within the segmental artery to the right upper lobe and partially occlusive within the right middle lobe, right lower lobe, and left lower lobe segmental and subsegmental arteries. There is some extension into the right main pulmonary artery. No saddle embolus identified. The pulmonary arteries are not dilated. The thoracic aorta is normal in caliber and configuration. No focal consolidation. Mild cardiomegaly is stable. No mediastinal, hilar, or axillary adenopathy. Fatty atrophy of the pancreas is noted. Nodular thickening of the left adrenal gland is unchanged from CT 12/09/2014 of the abdomen. The remainder of the visualized upper abdomen is unremarkable. No acute osseous abnormality identified. IMPRESSION: 1. Bilateral pulmonary emboli, as described. 2. Mild cardiomegaly without failure. CRITICAL FINDING Report given to Dr. Rico at 6:37 p.m. 09/19/2016/acb Dictated by: Dictated on workstation # [id number]
[2016-09-19] MEDS ORDERED: ENOXAPARIN 100 MG/1 ML (LOVENOX) SYR SC ONE (18:50)
--- NOTE | 2016-09-19 18:52 | NUR ---
Report given to Nereyda NESS.
--- NOTE | 2016-09-19 19:12 | NUR ---
Dr. Sewell at bedside evaluating pt.
--- NOTE | 2016-09-19 19:55 | NUR ---
Pt arrives per ER cart for admission to 306. Up to chair scale w/o difficulty. States began having difficulty breathing while playing cards and "sitting for about 3 hours". States normally does not wear oxygen. Lungs clear & diminished throughout entire right lobe, left lobes clear. Pt denies dyspnea at present. Heart regular, no ectopy noted. Telemetry applied. Abdomen soft, non-tender. IV site to right AC patent, no redness noted. See admission assessment for further info. Oriented to room and hospital procedures, along with scheduled medications. Pt verbalizes understanding. Call light in reach.
[2016-09-19 20:03] VITALS: BP 164/91
[2016-09-19 20:09] VITALS: BP 164/91
[2016-09-19] MEDS ORDERED: NITROGLYCERIN SUBLINGUAL 0.4 MG (NITROQUICK) TABLET SL SCH (20:15)
[2016-09-19] MEDS ORDERED: ACETAMINOPHEN 325 MG TAB (TYLENOL) PO PRN (20:20)
[2016-09-19] MEDS ORDERED: ONDANSETRON 4 MG (ZOFRAN) ORAL DISSOLVE TAB PO PRN (20:20)
[2016-09-19] MEDS ORDERED: POLYETHYLENE GLYCOL 17 GM (MIRALAX) PACKET PO PRN (20:20)
[2016-09-19] MEDS ORDERED: DOCUSATE SODIUM 100 MG (COLACE) CAP PO PRN (20:20)
[2016-09-19] MEDS ORDERED: MAG HYDROX/AL HYDROX/SIMETH 200-200-20/5 ML (MAG-AL PLUS) 30 ML UDC PO PRN (20:20)
[2016-09-19] MEDS ORDERED: CALCIUM CARBONATE CHEWABLE 300 MG (TUMS) TABLET PO PRN (20:20)
[2016-09-19] MEDS ORDERED: MAGNESIUM HYDROXIDE 80MG/ML (MILK OF MAGNESIA) 30 ML UDC PO PRN (20:20)
[2016-09-19] MEDS ORDERED: PROMETHAZINE HCL INJ 12.5 MG in SODIUM CHLORIDE 25 ML IV PRN (20:20)
--- NOTE | 2016-09-19 20:23 | History and Physical (E) ---
History & Physical PCP: Anderson Interiano MD CC: Shortness of breath HPI Doyle Fu is a 76 year old male admitted from ED 09/19 where he presented with complaint of shortness of breath while mowing his lawn. Denied chest pain but did have an OK 06/2016. Afebrile in ED with HR 88, RR 22, BP 171/102. SpO2 93%. WBC mildly elevated at 11.05 with 75% N and no bands. Chemistry fairly unremarkable. Troponin was negative. D-dimer was very high at 7584. CT as noted showing bilateral, but not saddle pulmonary emboli. He was given enoxaparin 1 mg /kg in ED and was admitted for further management. Seen and examined in ED. Awake, interactive, oriented, NAD. Denies chest pain and not feeling dyspneic at present. Relates history of car ride to [place] last week, a [address] Acknowledges not stopping much during that car ride. Also noted that he played a card game a few days ago and recalls sitting for several hours. Denies trauma to legs. Denies unilateral swelling or calf pain. No recent surgery but did have a heart cath on June 2016. (No stent was placed.) Regarding cancer screening, is due for a repeat colonoscopy. Previous scope showed polyps, he says. Doesn't recall if he has had PSA screen. Has had skin lesions removed before but uncertain if any history of cancer. PMH * Cholelithiasis * Morbid Obesity * Crohn's disease * Hypertension * HLD * OK (June 2016?) PSH * Cataract surgery * colonosocpy * laparotomy * scalp lesion excision ALLERGIES: Please see list at end of report. HOME MEDICATIONS: Please see list at end of report. FH Mother had diabetes, father had renal cancer. SH Retired, worked at [employer]. , lives with his in their home. Denies alcohol or tobacco use. ROS CONSTITUTION: Denies weight loss or gain. Denies fever or chills. HEENT: No change in vision or hearing. No sores in mouth, sore throat. CV: No chest pain, palpitations. PULM: Occasional cough. Otherwise per HPI. GI: No upset stomach, nausea, vomiting, constipation. Had diarrhea x 2 episodes 10 days ago. : No dysuria. No blood in urine. MS: No new muscle or joint aches and pains. NEURO: No numbness or tingling. No weakness. INTEG: No rashes, lesions, or sores. ENDO: No heat or cold intolerance. No polydipsia or polyuria. HEME/LYMPH: No easy bruising or bleeding. No swollen glands. PSYCH: No change in mood or behavior. OBJECTIVE Vital Signs Date Time Temp Pulse Resp B/P Pulse Ox O2 Delivery O2 Flow Rate FiO2 09/19/16 17:56 94 Nasal Cannula 4 09/19/16 16:57 98.4 88 22 171/102 GEN: Awake, alert, oriented, NAD at present. HEENT: EOMI, clear scleraa, somewhat dry oral mucosa. CV: RRR S1 S2 normal with no murmur LUNGS: Upper airway coarse wheeze bilaterally, mild and intermittent. Audible air movement in bases. ABD: Soft, NT/ND with normal bowel sounds. Scar tissue in epigastrium from prior laparotomy. EXTR: Trace ankle edema, symmetric. INTEG: No rash. NEURO: No focal motor neuro deficit. Weight: 102.2 kg Laboratory Results-14 Days 09/19/16 16:50: Activated Partial Thromboplast Time 29.9, Alanine Aminotransferase (ALT/SGPT) 19L, Albumin 4.4, Albumin/Globulin Ratio 1.189, Alkaline Phosphatase 87, Anion Gap 14.6, Aspartate Amino Transf (AST/SGOT) 18, BUN/Creatinine Ratio 12, Basophils # (Auto) 0.0, Basophils (%) (Auto) 0, Blood Urea Nitrogen 15, C- Reactive Protein 1.90H, Calcium Level 9.2, Calcium/Ionized Calcium Ratio 3.7L, Calculated Osmolality 277L, Carbon Dioxide Level 26, Chloride Level 105, Creatinine 1.24, D-Dimer 7548*H, Eosinophils # (Auto) 0.1, Eosinophils (%) (Auto ) 1, Estimat Glomerular Filtration Rate 68.6, Estimated GFR (Non- 56.7, Glucose Level 128#H, Hematocrit 45.40, Hemoglobin 15.2, Lymphocytes # (Auto) 1.7, Lymphocytes (%) (Auto) 16L, Mean Corpuscular Hemoglobin 29.5, Mean Corpuscular Hemoglobin Concent 33.5, Mean Corpuscular Volume 88, Mean Platelet Volume 9.4, Monocytes # (Auto) 1.0, Monocytes (%) (Auto ) 9, VG-Mbb-O-Type Natriuretic Peptide 400, Neutrophils # (Auto) 8.3, Neutrophils (%) (Auto) 75H, Platelet Count 237#, Potassium Level 3.8, Prothromb Time International Ratio 1.0, Prothrombin Time 11.3, Red Blood Count 5.16, Red Cell Distribution Width 12.9, Sodium Level 142, Total Bilirubin 1.1H, Total Protein 8.1, Troponin I < 0.012, White Blood Count 11.05H IMAGING 09/19/16 CT ANGIO CHEST W PROCEDURE: CT angiography of the chest with contrast. TECHNIQUE: Multiple contiguous axial images were obtained through the chest after uneventful bolus administration of intravenous contrast. Reconstructed CTA MIP acquisitions were also performed. INDICATION: Dyspnea, elevated d- dimer. COMPARISON: 11/13/2008. DISCUSSION: There is extensive bilateral pulmonary emboli present which is occlusive within the segmental artery to the right upper lobe and partially occlusive within the right middle lobe, right lower lobe, and left lower lobe segmental and subsegmental arteries. There is some extension into the right main pulmonary artery. No saddle embolus identified. The pulmonary arteries are not dilated. The thoracic aorta is normal in caliber and configuration. No focal consolidation. Mild cardiomegaly is stable. No mediastinal, hilar, or axillary adenopathy. Fatty atrophy of the pancreas is noted. Nodular thickening of the left adrenal gland is unchanged from CT 12/09/2014 of the abdomen. The remainder of the visualized upper abdomen is unremarkable. No acute osseous abnormality identified. IMPRESSION: 1. Bilateral pulmonary emboli, as described. 2. Mild cardiomegaly without failure. ASSESSMENT Doyle Fu is a 76 year old male admitted from ED 09/19 with acute resipratory distress due to acute onset bilateral pulmonary embolism. Risk factors include overweight, age, and inflammatory bowel disease. PLAN * Acute Respiratory Distress: Oxygen protocol. * Bilateral Pulmonary Embolism: CT as noted. Enoxaparin 1 mg/kg given in ED. Continued on admit BID. Discuss anticoagulation options. Review cancer screening. * F/E/N: Regular diet. Peripheral IV. * Prophylaxis: Therapeutic Enoxaparin * Code Status: Full * Dispo: Observation pending utilization review. CHRONIC ISSUES * HTN: Carvedilol, HCTZ, valsartan, doxazosin * HLD: Simvastatin * CAD: Clopidogrel Allergies/Home Medications Allergies: Coded Allergies: No Known Allergies (Verified Allergy, Unknown, 07/30/16) Reported Home Medications Scheduled Acetaminophen (Tylenol) 325 MG PO BID (Reported) Carvedilol (Carvedilol) 3.125 MG PO DAILY (Reported) Ciprofloxacin HCl (Ciloxan 0.3% Ophthalmic Drops) 2.5 ML OT NEEDED (Reported ) Clopidogrel Bisulfate (Clopidogrel) 75 MG PO DAILY (Reported) Doxazosin Mesylate (Cardura) 8 MG PO DAILY (Reported) Doxazosin Mesylate (Cardura) 8 MG PO DAILY (Reported) Furosemide (Furosemide) 20 MG PO DAILY (Reported) Hydrochlorothiazide (Hctz) 25 MG PO DAILY (Reported) Nitroglycerin (Nitroglycerin) 0.4 MG SL NEEDED (Reported) Potassium Chloride (Klor-Con M20) 20 MEQ PO BID WITH MEALS Simvastatin (Simvastatin) 20 MG PO HS (Reported) Valsartan (Valsartan) 320 MG PO DAILY (Reported) Copies to: End of Report . TONA ERWIN MD September 19, 2016 18:55
[2016-09-19] MEDS: SIMvastatin 20 MG (ZOCOR) TAB PO SCH (21:02)
[2016-09-19] MEDS: CARVEDILOL 3.125 MG (COREG) TABLET PO SCH (21:02)
[2016-09-19] MEDS: doxAzosin 4 MG (CARDURA) TAB PO SCH (21:02)
[2016-09-20] VITALS: BP 142/82
--- NOTE | 2016-09-20 00:01 | NUR ---
Pt resting quietly in bed, at bedside. no needs at present.
[2016-09-20 04:11] VITALS: BP 146/87
[2016-09-20] MEDS: ENOXAPARIN 120 MG/0.8 ML (LOVENOX) SYR SC SCH ×2 (06:07→18:15)
--- NOTE | 2016-09-20 06:13 | NUR ---
Pt states he has rested well during night. Denies dyspnea or pain at present. Lovenox injection given. remains at bedside.
[2016-09-20 07:26] VITALS: BP 172/94
--- NOTE | 2016-09-20 07:34 | NUR ---
Patient resting in bed watching television upon shift assessment. Alert and oriented X3. Denies chest pain, SOA, or other distress. No JVD noted. Respirations even and non-labored on 2L of 02. Lung sounds coarse in upper lobes and diminished in lower lobes. Telemetry intact and reflecting NSR at a rate of 74 bpm. Has not ambulated since admission and uses urinal at bedside. Updated on plan of care for shift. Call light in reach.
[2016-09-20] MEDS ORDERED: DABI150C PO ×2 (08:46→08:49)
--- NOTE | 2016-09-20 08:47 | Progress Note (E) ---
Progress Note SUBJECTIVE Remained on 2 L overnight. SpO2 95%. Working on oxygen wean today. BP elevated at times... this AM 172/94 before his AM BP meds. HR 60-70's. No new labs. On exam, alert, interactive, oriented, no distress. Discussed anticoagulation options. Handouts provided. He'd like to try dabigatran. Prescription sent to pharmacy to check on prior authorization, [id number] cost. OBJECTIVE Vital Signs Date Time Temp Pulse Resp B/P Pulse Ox O2 Delivery O2 Flow Rate FiO2 09/20/16 07:26 96.5 64 64 172/94 95 Nasal cannula 09/19/16 20:09 2.00 I & O 09/19/16 09/20/16 Cumulative From/Thru 19:00 07:00 09/19/16 16:57 - 09/20/16 06:03 Intake Total 400 ml 400 ml Output Total 450 ml 450 ml Balance -50 ml -50 ml GEN: Awake, alert, oriented, NAD at present. HEENT: EOMI, clear sclerae, somewhat dry oral mucosa. CV: RRR S1 S2 normal with no murmur LUNGS: Improved breath sounds with no R/R/W. Good air movement throughout. ABD: Soft, NT/ND with normal bowel sounds. Scar tissue in epigastrium from prior laparotomy. EXTR: Trace ankle edema, symmetric. INTEG: No rash. NEURO: No focal motor neuro deficit. Weight: 102.2 kg Lab-Past 14 Days, 35 Results 09/19/16 16:50: Activated Partial Thromboplast Time 29.9, Alanine Aminotransferase (ALT/SGPT) 19L, Albumin 4.4, Albumin/Globulin Ratio 1.189, Alkaline Phosphatase 87, Anion Gap 14.6, Aspartate Amino Transf (AST/SGOT) 18, BUN/Creatinine Ratio 12, Basophils # (Auto) 0.0, Basophils (%) (Auto) 0, Blood Urea Nitrogen 15, C- Reactive Protein 1.90H, Calcium Level 9.2, Calcium/Ionized Calcium Ratio 3.7L, Calculated Osmolality 277L, Carbon Dioxide Level 26, Chloride Level 105, Creatinine 1.24, D-Dimer 7548*H, Eosinophils # (Auto) 0.1, Eosinophils (%) (Auto ) 1, Estimat Glomerular Filtration Rate 68.6, Estimated GFR (Non- 56.7, Glucose Level 128#H, Hematocrit 45.40, Hemoglobin 15.2, Lymphocytes # (Auto) 1.7, Lymphocytes (%) (Auto) 16L, Mean Corpuscular Hemoglobin 29.5, Mean Corpuscular Hemoglobin Concent 33.5, Mean Corpuscular Volume 88, Mean Platelet Volume 9.4, Monocytes # (Auto) 1.0, Monocytes (%) (Auto ) 9, EU-Zdp-X-Type Natriuretic Peptide 400, Neutrophils # (Auto) 8.3, Neutrophils (%) (Auto) 75H, Platelet Count 237#, Potassium Level 3.8, Prothromb Time International Ratio 1.0, Prothrombin Time 11.3, Red Blood Count 5.16, Red Cell Distribution Width 12.9, Sodium Level 142, Thyroid Stimulating Hormone (TSH ) 1.89, Total Bilirubin 1.1H, Total Protein 8.1, Troponin I < 0.012, White Blood Count 11.05H IMAGING 09/19/16 CT ANGIO CHEST W PROCEDURE: CT angiography of the chest with contrast. TECHNIQUE: Multiple contiguous axial images were obtained through the chest after uneventful bolus administration of intravenous contrast. Reconstructed CTA MIP acquisitions were also performed. INDICATION: Dyspnea, elevated d- dimer. COMPARISON: 11/13/2008. DISCUSSION: There is extensive bilateral pulmonary emboli present which is occlusive within the segmental artery to the right upper lobe and partially occlusive within the right middle lobe, right lower lobe, and left lower lobe segmental and subsegmental arteries. There is some extension into the right main pulmonary artery. No saddle embolus identified. The pulmonary arteries are not dilated. The thoracic aorta is normal in caliber and configuration. No focal consolidation. Mild cardiomegaly is stable. No mediastinal, hilar, or axillary adenopathy. Fatty atrophy of the pancreas is noted. Nodular thickening of the left adrenal gland is unchanged from CT 12/09/2014 of the abdomen. The remainder of the visualized upper abdomen is unremarkable. No acute osseous abnormality identified. IMPRESSION: 1. Bilateral pulmonary emboli, as described. 2. Mild cardiomegaly without failure. ASSESSMENT Doyle Fu is a 76 year old male admitted from ED 09/19 with acute respiratory distress due to acute onset bilateral pulmonary embolism. Risk factors include overweight, age, inflammatory bowel disease, and recent 3-hour road trip x 2. PLAN * Acute Respiratory Distress: Resolving. Oxygen protocol. * Bilateral Pulmonary Embolism: CT as noted. Enoxaparin 1 mg/kg given in ED. Continued on admit BID. Discussed anticoagulation options and he selected dabigatran. Reviewed cancer screening. * F/E/N: Regular diet. Peripheral IV. * Prophylaxis: Therapeutic Enoxaparin * Code Status: Full * Dispo: Observation pending utilization review. CHRONIC ISSUES * HTN: Carvedilol, HCTZ, valsartan, doxazosin * HLD: Simvastatin * CAD: Clopidogrel TONA ERWIN MD September 20, 2016 08:23
[2016-09-20] MEDS: CARVEDILOL 3.125 MG (COREG) TABLET PO SCH ×2 (08:59→18:15)
[2016-09-20] MEDS: VALSARTAN 160 MG (DIOVAN) TABLET PO SCH (08:59)
[2016-09-20] MEDS: HYDROCHLOROTHIAZIDE 25 MG (HCTZ) TAB PO SCH (08:59)
[2016-09-20] MEDS: CLOPIDOGREL 75 MG (PLAVIX) TAB PO SCH (08:59)
--- NOTE | 2016-09-20 10:25 | NUR ---
NUTRITION ASSESSMENT Level 1 Patient: Doyle Fu Age/Sex: 76/M Date Screened: 09-20-16 Weight: 254.1#/115.5 kg Height: 74 inches Primary Diagnosis: pulmonary embolism Diet Order: cardiac Relevant labs: glucose 128 Food allergies: N Nutrition Assessment Criteria Age over 80: N Body Mass Index (BMI) under 19: N Admission Screening Indicates Risk? N Moderate/High Risk Diagnosis: N TPN or PPN: N NPO or clear liquid diet: N Serum Glucose <70 or >180: N Hgb A1c >6.7: N/A Total: 0 points Risk Screen: _X_ Patient at low nutritional risk based on available data; reevaluate in 5-7 days __ Patient at moderate nutritional risk based on available data; reevaluate in 3-5 days __ Patient at high nutritional risk; complete Nutrition Assessment within 48 hours of admission. Comments: Pt. denied weight changes (he is actually down ~4-6# from 2 months ago) and denied GI concerns. Weight loss is insignificant at this time. Appetite is good, eating 95%. Will reassess as documented above.
[2016-09-20 11:21] VITALS: BP 157/86
[2016-09-20] MEDS ORDERED: FURO20TA4 PO (13:27)
[2016-09-20] MEDS ORDERED: NITROGLYCERIN SUBLINGUAL 0.4 MG (NITROQUICK) TABLET SL PRN (14:15)
[2016-09-20 15:34] VITALS: BP 159/97
[2016-09-20] MEDS ORDERED: AC500T PO (18:10)
[2016-09-20] MEDS ORDERED: ASPI-586 PO (18:10)
--- NOTE | 2016-09-20 18:11 | NUR ---
MED REC COMPLETED-current med list obtained from Ext Med History application, patient's PCP, and patient interview.
--- NOTE | 2016-09-20 18:18 | NUR ---
Patient sitting up in recliner consuming supper. Remains on roomair throughout day shift with no c/o SOA. Ambulates numerous times in halls independently. Pharmacy here this evening to juvenile counselor patient on blood thinners. Tolerates 1800 dose of Lovenox well. Call light in reach.
--- NOTE | 2016-09-20 19:30 | NUR ---
Pt up in chair; watching tv. at bedside. Denies c/o.
[2016-09-20 19:40] VITALS: BP 150/83
--- NOTE | 2016-09-20 20:12 | NUR ---
SpO2 93% on Room Air. Pt up in chair.
[2016-09-20] MEDS: SIMvastatin 20 MG (ZOCOR) TAB PO SCH (20:20)
[2016-09-20] MEDS: doxAzosin 4 MG (CARDURA) TAB PO SCH (20:20)
[2016-09-21 00:02] VITALS: BP 133/72
[2016-09-21 04:25] VITALS: BP 169/90
[2016-09-21] MEDS: ENOXAPARIN 120 MG/0.8 ML (LOVENOX) SYR SC SCH (06:06)
--- NOTE | 2016-09-21 06:07 | NUR ---
Pt rests well throughout the night. Denies pain. Resp even and non labored on RA. Independent in room. SL intact. at bedside. No needs at this time.
[2016-09-21] MEDS ORDERED: PRV20T PO (07:32)
[2016-09-21] MEDS ORDERED: [UNRECOGNIZED DRUG - CODE] SC (07:33)
[2016-09-21 07:41] VITALS: BP 164/93
[2016-09-21] MEDS: HYDROCHLOROTHIAZIDE 25 MG (HCTZ) TAB PO SCH (07:48)
--- NOTE | 2016-09-21 07:50 | NUR ---
Patient up in chair. in room. Patient states he doesn't feel as well as last night, but "can't put my finger on it." Does c/o a little stomach ache, but states he is not bad. Expresses concern for elevated blood pressure. thinks patient seemed a little short of air this morning, but patient denies SOA. Dr. Sewell in to go over discharge with patient. and patient both ask appropriate questions. Clear instructions given about new medications.
--- NOTE | 2016-09-21 07:54 | Discharge Instructions (E) ---
Discharge Instructions Instructions * You were evaluated and treated for shortness of breath due to blood clots in your lungs. Pulmonary embolisms are treated with blood thinner medication. You received education about various blood thinner choices and you choose dabigatran. You will need to take this medication for at least 6 months. * Before starting dabigatran, it is necessary to take immediate-acting blood thinner such as enoxaparin (Lovenox) for 5 days. You can complete your series of injections at the [facility] ER. Your next dose should be around 9: 00 pm 09/21. * DO NOT START TAKING DABIGATRAN UNTIL 12 HOURS AFTER YOUR LAST INJECTION OF ENOXAPARIN. * Because you are taking aspirin and clopidogrel for heart disease, there is an increased risk of bleeding complications with dabigatran. Talk to your engineering supervisor at your upcoming appointment to see if aspirin or clopidogrel can be stopped to reduce your risk of bleeding complications. * Because of a medication interaction between simvastatin (your cholesterol medication) and dabigatran, simvastatin has been changed to pravastatin. * Seek immediate medical attention if you develop worse shortness of breath, coughing up blood, have chest pain, palpitations, if you have blood in urine or stool, or if you have any other concerns. Activity Instructions As tolerated, though you should avoid strenuous activity until you have been seen by your primary care doctor. Doctor's Appointment Keep your appointment with Dr. Diaz (cardiology) as scheduled. Follow-up with your primary care doctor in 3-5 days. Discharge Diet: Heart Healthy TONA ERWIN MD September 21, 2016 07:41
--- NOTE | 2016-09-21 08:00 | NUR ---
HCTZ held due to doctor Bloustine asking we not give it. Plan is for patient to be discharged on lasix.
--- NOTE | 2016-09-21 08:06 | Discharge Summary (E) ---
Discharge Summary (E) Admit Date/Time September 19, 2016 at 19:35 Discharge Date/Time September 21, 2016 Admitting Provider Saturnino Sewell MD Primary Care Provider Anderson Interiano MD Attending Provider Saturnino Sewell MD Consulting Provider History and Present Illness Doyle Fu is a 76 year old male admitted from ED 09/19 with acute respiratory distress due to acute onset bilateral pulmonary embolism. Risk factors included overweight, age, inflammatory bowel disease, and recent 3-hour road trip x 2. He was given enoxaparin in ED and oxygen. He improved the next day with wean of oxygen to room air. Extensive education given at bedside regarding diagnosis, anticoagulation options. He ultimately chose dabigatran. Arrangements were made to continue enoxaparin to complete a 5-day course, then start dabigatran. Additional details of his hospitalization are as follows. 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 He was discharged home in improved, stable condition. Hospital Course and Treatment * Acute Respiratory Distress: Resolved. On oxygen on admit but weaned easily to room air the next day. * Bilateral Pulmonary Embolism: CT as noted. Enoxaparin 1 mg/kg given in ED and continued BID on admit. Discussed anticoagulation options and he selected dabigatran. He will come to ED Q12H after discharge for enoxaparin x 7 more doses to complete a 5-day course, then will start dabigatran in AM 09/25. Will need at least 6 months therapy. * F/E/N: Regular diet. Peripheral IV. * Prophylaxis: Therapeutic Enoxaparin * Code Status: Full * Dispo: Met inpatient criteria from admission. Discharged home in improved, stable condition. CHRONIC ISSUES * HTN: Carvedilol, valsartan, doxazosin. He was noted to be somewhat hypertensive during this hospitalization but deferred adjustments in meds to his primary care physician. * HLD: Simvastatin was changed to pravastatin because of interaction with dabigatran. * CAD: Clopidogrel, aspirin. He will discuss with his kindergarten instructional assistant if one of these anti-platelet agents can be stopped due to increased bleeding risk with dabigatran. Discharge Physicial Exam General Vital Signs Date Time Temp Pulse Resp B/P Pulse Ox O2 Delivery O2 Flow Rate FiO2 09/21/16 04:25 97.2 68 18 169/90 96 Room air 09/21/16 00:02 0.00 GEN: Awake, alert, oriented, NAD at present. HEENT: EOMI, clear sclerae, moist oral mucosa. CV: RRR S1 S2 normal with no murmur LUNGS: CTA B with no R/R/W. ABD: Soft, NT/ND with normal bowel sounds. Scar tissue in epigastrium from prior laparotomy. EXTR: Trace ankle edema, symmetric. INTEG: No rash. NEURO: No focal motor neuro deficit. Weight: 114.4 kg (114.8 kg on admit.) Laboratory/Radiology Data Laboratory Results-14 Days 09/19/16 16:50: Activated Partial Thromboplast Time 29.9, Alanine Aminotransferase (ALT/SGPT) 19L, Albumin 4.4, Albumin/Globulin Ratio 1.189, Alkaline Phosphatase 87, Anion Gap 14.6, Aspartate Amino Transf (AST/SGOT) 18, BUN/Creatinine Ratio 12, Basophils # (Auto) 0.0, Basophils (%) (Auto) 0, Blood Urea Nitrogen 15, C- Reactive Protein 1.90H, Calcium Level 9.2, Calcium/Ionized Calcium Ratio 3.7L, Calculated Osmolality 277L, Carbon Dioxide Level 26, Chloride Level 105, Creatinine 1.24, D-Dimer 7548*H, Eosinophils # (Auto) 0.1, Eosinophils (%) (Auto ) 1, Estimat Glomerular Filtration Rate 68.6, Estimated GFR (Non- 56.7, Glucose Level 128#H, Hematocrit 45.40, Hemoglobin 15.2, Lymphocytes # (Auto) 1.7, Lymphocytes (%) (Auto) 16L, Mean Corpuscular Hemoglobin 29.5, Mean Corpuscular Hemoglobin Concent 33.5, Mean Corpuscular Volume 88, Mean Platelet Volume 9.4, Monocytes # (Auto) 1.0, Monocytes (%) (Auto ) 9, DE-Ibp-G-Type Natriuretic Peptide 400, Neutrophils # (Auto) 8.3, Neutrophils (%) (Auto) 75H, Platelet Count 237#, Potassium Level 3.8, Prothromb Time International Ratio 1.0, Prothrombin Time 11.3, Red Blood Count 5.16, Red Cell Distribution Width 12.9, Sodium Level 142, Thyroid Stimulating Hormone (TSH ) 1.89, Total Bilirubin 1.1H, Total Protein 8.1, Troponin I < 0.012, White Blood Count 11.05H IMAGING 09/19/16 CT ANGIO CHEST W PROCEDURE: CT angiography of the chest with contrast. TECHNIQUE: Multiple contiguous axial images were obtained through the chest after uneventful bolus administration of intravenous contrast. Reconstructed CTA MIP acquisitions were also performed. INDICATION: Dyspnea, elevated d- dimer. COMPARISON: 11/13/2008. DISCUSSION: There is extensive bilateral pulmonary emboli present which is occlusive within the segmental artery to the right upper lobe and partially occlusive within the right middle lobe, right lower lobe, and left lower lobe segmental and subsegmental arteries. There is some extension into the right main pulmonary artery. No saddle embolus identified. The pulmonary arteries are not dilated. The thoracic aorta is normal in caliber and configuration. No focal consolidation. Mild cardiomegaly is stable. No mediastinal, hilar, or axillary adenopathy. Fatty atrophy of the pancreas is noted. Nodular thickening of the left adrenal gland is unchanged from CT 12/09/2014 of the abdomen. The remainder of the visualized upper abdomen is unremarkable. No acute osseous abnormality identified. IMPRESSION: 1. Bilateral pulmonary emboli, as described. 2. Mild cardiomegaly without failure. Discharge Disposition Discharged home in improved, stable condition. Instructions * You were evaluated and treated for shortness of breath due to blood clots in your lungs. Pulmonary embolisms are treated with blood thinner medication. You received education about various blood thinner choices and you choose dabigatran. You will need to take this medication for at least 6 months. * Before starting dabigatran, it is necessary to take immediate-acting blood thinner such as enoxaparin (Lovenox) for 5 days. You can complete your series of injections at the [facility]. Your next dose should be around 9: 00 pm 09/21. * DO NOT START TAKING DABIGATRAN UNTIL 12 HOURS AFTER YOUR LAST INJECTION OF ENOXAPARIN. * Because you are taking aspirin and clopidogrel for heart disease, there is an increased risk of bleeding complications with dabigatran. Talk to your kindergarten instructional assistant at your upcoming appointment to see if aspirin or clopidogrel can be stopped to reduce your risk of bleeding complications. * Because of a medication interaction between simvastatin (your cholesterol medication) and dabigatran, simvastatin has been changed to pravastatin. * Seek immediate medical attention if you develop worse shortness of breath, coughing up blood, have chest pain, palpitations, if you have blood in urine or stool, or if you have any other concerns. Activity Instructions As tolerated, though you should avoid strenuous activity until you have been seen by your primary care doctor. Appointments Keep your appointment with Dr. Diaz (cardiology) as scheduled. Follow-up with your primary care doctor in 3-5 days. Discharge Diet: Heart Healthy Discharge Medications New Medications: Dabigatran Etexilate (Pradaxa) 150 Mg Capsule 150 MG PO BID #60 Ref 0 CAP Pravastatin Sodium (Pravastatin Sodium) 20 Mg Tablet 20 MG PO HS #30 Ref 0 TAB Enoxaparin Sodium (Lovenox) 120 Mg/0.8 Ml Disp.syrin 120 MG SC Q12H #7 Ref 0 DOSE Continued Medications: Acetaminophen (Acetaminophen) 500 Mg Tablet 500 MG PO BID TAB Aspirin (Aspir 81) 81 Mg Tablet.dr 81 MG PO DAILY TAB Carvedilol (Carvedilol) 3.125 Mg Tablet 3.125 MG PO BID WITH MEALS Clopidogrel Bisulfate (Clopidogrel) 75 Mg Tablet 75 MG PO DAILY TAB Doxazosin Mesylate (Cardura) 8 Mg Tablet 8 MG PO DAILY TAB Furosemide (Furosemide) 20 Mg Tablet 20 MG PO DAILY TAB Nitroglycerin (Nitroglycerin) 0.4 Mg Tab.subl 0.4 MG SL NEEDED #25 Potassium Chloride (Klor-Con M20) 20 Meq Tab.er.prt 20 MEQ PO BID WITH MEALS #90 Ref 0 TAB Valsartan (Valsartan) 160 Mg Tablet 320 MG PO DAILY Discontinued Medications: Simvastatin (Simvastatin) 20 Mg Tablet 20 MG PO HS Discharge Diagnosis See list above. Problems: Copies to: Additional Provider: Keenan Diaz End of Report . SATURNINO SEWELL MD September 21, 2016 08:06
[2016-09-21] MEDS: CLOPIDOGREL 75 MG (PLAVIX) TAB PO SCH (08:57)
[2016-09-21] MEDS: VALSARTAN 160 MG (DIOVAN) TABLET PO SCH (08:57)
[2016-09-21] MEDS: CARVEDILOL 3.125 MG (COREG) TABLET PO SCH (08:57)
--- NOTE | 2016-09-21 09:20 | NUR ---
Printed discharge instructions reviewed and questions answered. Pharmacy in to make sure patient and spouse had questions regarding medication clarified. SL discontinued.
--- NOTE | 2016-09-21 09:20 | NUR ---
Reviewed discharge medications with patient. Provided patient handout information for new medications. No additional questions or concerns. Patient verbalized understanding of medications.
--- NOTE | 2016-09-21 09:32 | NUR ---
DC to home with spouse. Ambulatory to exit accompanied by staff.
== END 2016-09-21 09:32 | disposition home or self-care (01) | DRG 176 ==
LOC: ED 16:48 → MED/SURG 19:35
PROVIDERS: ADMIT Internal Medicine; ATTEND Internal Medicine
DX: I26.99 Other pulmonary embolism without acute cor pulmonale (principal); K50.90 Crohn's disease, unspecified, without complications; I10 Essential (primary) hypertension; E78.5 Hyperlipidemia, unspecified; I25.10 Atherosclerotic heart disease of native coronary artery without angina pectoris; E66.3 Overweight; Z68.32 Body mass index [BMI] 32.0-32.9, adult; I25.2 Old myocardial infarction; Z79.02 Long term (current) use of antithrombotics/antiplatelets; Z79.82 Long term (current) use of aspirin
CPT/HCPCS: 36415; 80053; 83880; 84443; 84484; 85025; 85379; 85610; 85730; 86140; 93005; 94760; 96372; 99283; 99285

== ENCOUNTER 2016-09-21 20:52 | Outpatient (RCR) | payer MEDICARE, OTHER ==
[~2016-09-21] VITALS: Ht 188 cm; Wt 117.0 kg
[~2016-09-21 20:52] MED LIST changes: +AC500T PO; +ASPI-586 PO; +CARV3.12T PO; +CIPR2.5D OT; +CLPD75T PO; +DABI150C PO; +DOXA8TAB37 PO; +FURO20TA4 PO; +NITR0.4T7 SL; +PRV20T PO; +[UNRECOGNIZED DRUG - CODE] SC
[2016-09-21] MEDS: ENOXAPARIN 120 MG/0.8 ML (LOVENOX) SYR SC SCH (21:12)
[2016-09-22] MEDS: ENOXAPARIN 120 MG/0.8 ML (LOVENOX) SYR SC SCH ×2 (09:13→21:18)
--- NOTE | 2016-09-23 21:08 | NUR ---
Bilateral arm BP checks done per pt request. Pt reports he has appt scheduled this coming Sunday with his PCP.
[2016-09-23] MEDS: ENOXAPARIN 120 MG/0.8 ML (LOVENOX) SYR SC SCH (21:13)
[2016-09-24] MEDS: ENOXAPARIN 120 MG/0.8 ML (LOVENOX) SYR SC SCH ×2 (09:47→21:10)
[2016-09-24 21:06] VITALS: BP 184/104
--- NOTE | 2016-09-24 21:11 | NUR ---
RECHECK BP = 170/100 (RT ARM, SITTING POSITION), P = 75
== END 2016-09-27 18:21 | disposition home or self-care (01) ==
LOC: EUOP 09-22 08:56
PROVIDERS: ATTEND Internal Medicine
DX: I26.99 Other pulmonary embolism without acute cor pulmonale (principal)
CPT/HCPCS: 96372; J1650

== ENCOUNTER → 2016-09-22 | Outpatient (CLI) | payer MEDICARE, OTHER | LOC: RT 08:06 | PROVIDERS: ATTEND Internal Medicine | DX: I50.30 Unspecified diastolic (congestive) heart failure (principal) | CPT/HCPCS: 93005 ==